=== PATIENT | female | born 1930 | race Caucasian/White ===

== ENCOUNTER 2018-02-03 11:07 | Emergency (ER) | payer OTHER ==
[~2018-02-03] VITALS: Ht 142.2 cm; Wt 42.2 kg
[~2018-02-03 11:07] MED LIST: AVALIDE 150/12.1 TAB; COUMADIN10 MG; NORVASC10 MG; RESTORIL15 MG; TOPROL XL100 MG; ULTRACET; ZANTAC150 MG
== END 2018-02-03 17:39 | disposition home or self-care (01) ==
LOC: ER 11:07
DX: I82.4Z1 Acute embolism and thrombosis of unspecified deep veins of right distal lower extremity (principal); L97.811 Non-pressure chronic ulcer of other part of right lower leg limited to breakdown of skin

== ENCOUNTER 2018-02-24 15:22 | Emergency (ER) | payer OTHER ==
[~2018-02-24] VITALS: Ht 142.2 cm; Wt 40.8 kg
[2018-02-24] MEDS ORDERED: ZYRTEC10 M3 (15:48)
[2018-02-24] MEDS ORDERED: LIPITOR20 MG (15:48)
== END 2018-02-24 17:54 | disposition home or self-care (01) ==
LOC: ER 15:22
DX: L30.8 Other specified dermatitis (principal)

== ENCOUNTER 2018-08-23 11:40 | Emergency (ER) | payer OTHER ==
[~2018-08-23] VITALS: Ht 142.2 cm; Wt 40.8 kg
[~2018-08-23 11:40] MED LIST changes: -COUMADIN10 MG; +COUMADIN10 MG PO; +LIPITOR20 MG; -NORVASC10 MG; +NORVASC10 MG PO; +ZYRTEC10 M3
[2018-08-23] MEDS ORDERED: DAFLONEX-XL TA1 EACH PO (12:16)
[2018-08-23] MEDS ORDERED: HYDROCHLOROTH12.5 M1 PO (12:18)
== END 2018-08-23 22:57 | disposition home or self-care (01) ==
LOC: ER 11:40
DX: I69.398 Other sequelae of cerebral infarction (principal); R13.19 Other dysphagia; R42 Dizziness and giddiness; I10 Essential (primary) hypertension